=== PATIENT | male | born 1960 | race Caucasian/White ===

== ENCOUNTER 2022-12-10 09:26 | Day surgery (SDC) | payer OTHER, SELFPAY ==
[2022-12-10] VITALS (14 sets, daily range): BP systolic 108–131; BP diastolic 63–92; PULSE 57–73; RESP 16; TEMP 36.3–37.3; O2SAT 95–99; BMI 31.8
[2022-12-10] MEDS: SODIUM CHLORIDE 0.9 % (FLUSH) 10 ML SYRINGE IVF (10:10)
[2022-12-10] MEDS: LACTATED RINGERS 1000 ML 1,000 ML 100 ML IV (10:10)
--- NOTE | 2022-12-10 10:53 | W.ANESCHARGE ---
Anesthesia Charges Start Date/Time Anesthesia Start Date: 12/10/22 Anesthesia Start Time: 10:55 Stop Date/Time Anesthesia Stop Date: 12/10/22 Anesthesia Stop Time: 13:12
--- NOTE | 2022-12-10 11:15 | W.ANESCHARGE ---
Anesthesia Charges Start Date/Time Anesthesia Start Date: 12/10/22 Anesthesia Start Time: 10:55 Stop Date/Time Anesthesia Stop Date: 12/10/22 Anesthesia Stop Time: 13:12
[2022-12-10] MEDS: BUPIVACAINE 0.25% 30 ML INJECTION (11:54)
--- NOTE | 2022-12-10 13:13 | PM.GSPRC ---
Operative Note Date of procedure: 12/10/22 Pre-op diagnosis: Bilateral inguinal hernia Post-op diagnosis: Same Type of Procedure: Laparoscopic bilateral inguinal hernia repair Indications: Patient is a 62-year-old male who presented to clinic with a symptomatic left inguinal hernia. During her workup by right inguinal hernia was also noted on examination. Risks and benefits of operative intervention were discussed at length with the patient. Risks included but was not limited to: Bleeding, infection, risk of damage to surrounding structures, possible need for additional procedures, possible need to convert to an open operation and postoperative complications such as pneumonia, pulmonary emboli or ND. All questions and concerns were addressed with the patient agreeing to proceed. Procedure Description: After discussing the risks and benefits of the procedure, the patient signed informed consent.? The operative site was marked and the patient was brought to the operating room and placed on the operating table in supine position.? Care was taken to pad the patient's pressure points.?? The patient was then intubated by anesthesia.?? The operative site was then prepped and draped in the usual sterile fashion.? A time-out was then performed. A curvilinear incision was made below the umbilicus. Dissection was carried down to subcutaneous tissue until the anterior rectus fascia was encountered. This was incised off the midline. The rectus muscles were then retracted exposing the posterior fascia. A space maker port with a dissecting balloon was then introduced. Evidence on insufflation of being with in the abdomen. Balloon was removed. A midline incision was then made off the midline on the opposite side. An additional balloon was placed into the preperitoneal space. The preperitoneal space was inflated under direct vision. The balloon was then removed and the preperitoneal space insufflated. A 10 mm 30 degree scope was then advanced and the area was surveyed for bleeding. Dissection began on the left side. Mega's ligament and the pubic bone was exposed medially. Following this dissection was carried out laterally. A small direct and indirect defect was noted. The sac was dissected free from the cord structures using a combination of sharp and blunt dissection. Once the sac was completely reduced, the cord structures were dissected circumfrentially and a piece of 3D Bard mesh for the appropriate side was placed into the abdomen. This was positioned over the cord structures. A Tacker was used to attach the mesh medially at Mega's ligament and 1 tack was placed lateral, taking care to stay above the ilioinguinal ligament. Attention was turned to the opposite side where an indirect defect was noted and repair was completed in the same fashion. Once this was completed the sac was placed on top of the mesh and the preperitoneal space desufflated under direct vision. The ports were removed. The fascia from the infraumbilical port was closed with 0 Vicryl. The skin incisions were closed with absorbable subcuticular suture. Sterile dressings were then applied. The scrotum was examined to ensure that both testicles were down. Instrument sponge and needle counts were correct at the end of the case. Findings: Bilateral inguinal hernias, repaired laparoscopically with placement of mesh. Anesthesia: GETA Surgeon: Kassidy Porras MD Estimated blood loss (mL): 5 Condition: stable Disposition: same day
[2022-12-10] MEDS: KETOROLAC 15 MG/ML inj IVP (13:15)
[2022-12-10] MEDS: fentaNYL 100 MCG/2 ML inj 50 MCG IVP ×3 (13:20→13:44)
[2022-12-10] MEDS: OXYCODONE 5 MG TABLET PO ×2 (14:12→14:53)
== END 2022-12-10 15:14 | disposition home or self-care (01) ==
PROVIDERS: Visit Provider Surgery
PROC: (CPT 49650; principal; 2022-12-10 10:45)
DX: K40.20 Bilateral inguinal hernia, without obstruction or gangrene, not specified as recurrent (principal)
CPT/HCPCS: 49650; 00830; 00860; A9270; C1781; J0330; J1100; J1170; J1885; J2405; J2704; J3010; J3490; J7120